=== PATIENT | female | born 1985 | race Hispanic/Latino ===

== ENCOUNTER 2023-07-08 20:47 | Emergency (ER) | payer SELFPAY ==
[2023-07-08 21:31] LABS: Bilirubin Neg (Negative); Blood, Urine 50 (Negative); Clarity Clear (Clear); Glucose, Urine (Dipstick) Normal (Negative); Ketone, Urine Negative (Negative); Leukocyte 25 (Negative); Nitrite Negative (Negative); Protein, Urine (Dipstick) Negative (Neg-Trace); Urobilinogen Normal mg/dL (Less than 2)
[2023-07-08 21:34] LABS: Pregnancy Test - Urine (BHCG) Negative (Negative); Pregu Control Background? CLEAR/WHITE (CLR/WHITE); Pregu Control Bar Appear? YES (CONTROL BAR)
[2023-07-08 21:38] LABS: CAUTI Indications for Culture Pregnancy; RBC/HPF 0-3 HPF (0-3)
[2023-07-08 21:39] LABS: Bacteria/HPF 3+ HPF (None Seen); Squamous Epithelial 0-3 HPF (0-3)
[2023-07-08 21:40] LABS: Urine Culture Reflex Yes Yes
[2023-07-08] MEDS ORDERED: Doxycycline 100 MG CAP ONE (22:01)
[2023-07-08] MEDS ORDERED: cefTRIAXone (ROCEPHIN) 500 MG VIAL ONE (22:09)
[2023-07-08] MEDS ORDERED: metroNIDAZOLE 500 MG TAB ONE (22:35)
[2023-07-09 20:41] LABS: Chlamydia by PCR, Vaginal Swab Not Detected (NotDetected); GC by PCR, Vaginal Swab Not Detected (NotDetected)
== END 2023-07-08 22:35 | disposition home or self-care (01) ==
LOC: CSHERS 20:47
DX: N76.0 Acute vaginitis (principal)
CPT/HCPCS: 81001; 81025; 87086; 87480; 87491; 87510; 87591; 87660; 96372; 99283; J0696

== ENCOUNTER 2023-08-12 19:57 | Emergency (ER) | payer SELFPAY ==
[2023-08-12 20:27] LABS: #Basophils 0.1 10x3/uL (0.0-0.2); #Eosinphils 0.1 10x3/uL (0.0-0.5); #Monocytes 0.6 10x3/uL (0.0-1.1); #Neutrophils 3.7 10x3/uL (1.5-8.4); %Basophils 0.7 % (0.0-2.0); %Eosinophils 1.4 % (0.0-6.0); %Lymphocytes 37.3 % (18.0-47.0); %Monocytes 8.7 % (0.0-10.0); %Neutrophils 51.8 % (40.0-75.0); Hematocrit 36.6 % (34.9-44.5); Mean Corpuscular HGB CONC 32.8 g/dL (32.0-36.0); Mean Corpuscular Hemoglobin 28.6 pg (27.0-33.0); Mean Corpuscular Volume 87.4 fl (81.6-98.3); Mean Platelet Volume 9.9 fl (7.4-10.4); Platelet Count 296 10x3/uL (150-450); RBC Distribution Width 13.3 % (11.5-14.5); Red Blood Cell (RBC) Count 4.19 10x6/uL (3.90-5.03); White Blood Cell (WBC) Count 7.2 10x3/uL (3.5-10.5)
[2023-08-12 20:43] LABS: ALT (SGPT) 18 U/L (8-55); AST (SGOT) 24 U/L (5-34); Albumin 4.1 g/dL (3.5-5.0); Alkaline Phosphatase 47 U/L (40-110); Anion Gap 12 mmol/L (10-20); BUN (Urea Nitrogen) 13 mg/dL (7.0-18.7); Bilirubin, Total 0.3 mg/dL (0.2-1.2); Calc. Creatinine Clearance 0 mL/min (70-130); Calcium 8.7 mg/dL (7.8-10.44); Carbon Dioxide 22 mmol/L (22-29); Chloride 108 mmol/L (98-107); Estimated GFR 86; Globulin 2.7 g/dL (2.4-3.5); Glucose 91 mg/dL (70-105); Potassium 3.8 mmol/L (3.5-5.1); Protein, Total 6.8 g/dL (6.0-8.3); Sodium 138 mmol/L (136-145)
[2023-08-12 20:46] LABS: BHCG - Serum Negative (NEGATIVE); Pregs Control Background? CLEAR/WHITE (CLR/WHITE); Pregs Control Bar Appear? YES (CONTROL BAR)
[2023-08-12] MEDS ORDERED: Ibuprofen 800 MG TAB ONE (22:43)
[2023-08-12] MEDS ORDERED: HYDROcodone/Acetaminophen 5/325 mg Tablet ONE (22:44)
== END 2023-08-12 23:52 | disposition home or self-care (01) ==
LOC: CSHERS 19:57
DX: N93.8 Other specified abnormal uterine and vaginal bleeding (principal); J45.909 Unspecified asthma, uncomplicated; F17.210 Nicotine dependence, cigarettes, uncomplicated
CPT/HCPCS: 36415; 76856; 80053; 84703; 85025; 86900; 86901

== ENCOUNTER 2023-12-07 20:31 | Emergency (ER) | payer SELFPAY ==
[2023-12-07 22:09] LABS: SARS-CoV-2 NAA Rapid Test DETECTED (NotDetected)
== END 2023-12-07 22:46 | disposition home or self-care (01) ==
LOC: CSHERS 20:31
DX: U07.1 COVID-19 (principal); F17.210 Nicotine dependence, cigarettes, uncomplicated
CPT/HCPCS: 99283

== ENCOUNTER 2024-05-27 22:03 | Emergency (ER) | payer SELFPAY | END 2024-05-28 01:48 | disposition home or self-care (01) | LOC: CSHERS 22:03 | DX: M54.50 Low back pain, unspecified (principal); F17.210 Nicotine dependence, cigarettes, uncomplicated; Z55.6 Problems related to health literacy | CPT/HCPCS: 96372; J1885 ==

== ENCOUNTER 2024-10-27 10:49 | Emergency (ER) | payer SELFPAY | END 2024-10-27 11:50 | disposition home or self-care (01) | LOC: CSHERS 10:49 | DX: S60.945A Unspecified superficial injury of left ring finger, initial encounter (principal); R03.0 Elevated blood-pressure reading, without diagnosis of hypertension; F17.210 Nicotine dependence, cigarettes, uncomplicated; X50.1XXA Overexertion from prolonged static or awkward postures, initial encounter | CPT/HCPCS: 99283 ==

== ENCOUNTER 2025-08-13 15:15 | Emergency (ER) | payer OTHER, SELFPAY ==
[2025-08-13] MEDS ORDERED: HYDROcodone/Acetaminophen 5/325 mg Tablet ONE (17:02)
== END 2025-08-13 18:26 | disposition home or self-care (01) ==
LOC: CSHERS 15:15
DX: S80.02XA Contusion of left knee, initial encounter (principal); S40.012A Contusion of left shoulder, initial encounter; F17.210 Nicotine dependence, cigarettes, uncomplicated; V23.41XA Electric (assisted) bicycle driver injured in collision with car, pick-up truck or van in traffic accident, initial encounter; Y93.55 Activity, bike riding
CPT/HCPCS: 99284

== ENCOUNTER 2025-09-01 10:52 | Emergency (ER) | payer SELFPAY | END 2025-09-01 11:44 | disposition home or self-care (01) | LOC: CSHERS 10:52 | DX: T19.2XXA Foreign body in vulva and vagina, initial encounter (principal); D64.9 Anemia, unspecified; F17.210 Nicotine dependence, cigarettes, uncomplicated; W44.8XXA Other foreign body entering into or through a natural orifice, initial encounter | CPT/HCPCS: 99283 ==